=== PATIENT | female | born 1955 | race Caucasian/White ===

== ENCOUNTER 2018-02-15 10:06 | Outpatient (CLI) | payer MEDICARE | END 2018-02-15 10:07 | disposition home or self-care (01) | LOC: BICMAMMO 10:06 | PROVIDERS: ATTEND Internal Medicine | DX: Z12.31 Encounter for screening mammogram for malignant neoplasm of breast (principal) | CPT/HCPCS: 77063; 77067 ==

== ENCOUNTER 2018-11-03 08:56 | Outpatient (CLI) | payer MEDICARE ==
[~2018-11-03 08:56] MED LIST: Iopamidol 370 76% 100 ML VIAL ONE
--- NOTE | 2018-11-03 11:30 | CT ---
CT ABDOMEN PERFORMED WITH IV CONTRAST ENHANCEMENT: Date: 11/03/18 HISTORY: Irritable bowel syndrome with diarrhea, epigastric pain. Pelvic CT was not ordered for this examination. FINDINGS: The lung bases are clear of infiltrates. The liver shows fatty change. The spleen, pancreas, and gallbladder regions appear unremarkable. Right and left adrenal glands, and right and left kidneys are normal in size. The visualized small jimmy wel loops are unremarkable. The terminal ileum is partially visualized and appears normal. There is a moderate amount of stool present within the colon. No significant periaortic or mesenteric adenopath y. There are some small ileocolic nodes which are nonspecific. The appendix is not included on this e xam. IMPRESSION: Fatty change of liver. POS: [facility]
== END 2018-11-03 08:57 | disposition home or self-care (01) ==
LOC: BICCT 08:56
PROVIDERS: ATTEND Physician Assistant Medical
DX: K58.0 Irritable bowel syndrome with diarrhea (principal); K21.9 Gastro-esophageal reflux disease without esophagitis; R10.13 Epigastric pain; K76.0 Fatty (change of) liver, not elsewhere classified
CPT/HCPCS: 74160; 82565; Q9967

== ENCOUNTER 2019-06-14 14:11 | Outpatient (CLI) | payer MEDICARE ==
--- NOTE | 2019-06-14 15:07 | BD ---
BONE DENSITOMETRY USING DEXA: Date: 06/14/19 HISTORY: Postmenopausal screening for osteoporosis. FINDINGS: Lumbar Spine: BMD (g/cm2) L1 0.873 T-Score: -1.1 Z-Score: 0.6 L2 0.948 T-Score: -0.7 Z-Score: 1.1 L3 1.010 T-Score: -0.7 Z-Score: 1.3 L4 0.984 T-Score: -0.7 Z-Score: 1.3 L1-L4 0.958 T-Score: -0.8 Z-Score: 1.0 Femoral Neck: 0.802 T-Score: -0.4 Z-Score: 1.2 Total Femur: 0.959 T-Score: 0.1 Z-Score: 1.4 IMPRESSION: Normal bone mineral density. POS: [facility]
--- NOTE | 2019-06-14 15:38 | MMO ---
Bilateral MAMMO Bilat Screen [facility]. CLINICAL HISTORY: Patient is 64 years old and is seen for screening. The patient has no family history of breast cancer. The patient has no personal history of cancer. VIEWS: The views performed were: bilateral craniocaudal with tomosynthesis and bilateral mediolateral oblique with tomosynthesis. FILMS COMPARED: The present examination has been compared to prior imaging studies performed at [facility] on 09/24/2016 and 02/15/2018, and at [facility] on 08/21/2008. This study has been interpreted with the assistance of computer-aided detection. MAMMOGRAM FINDINGS: There are scattered fibroglandular densities. Finding 1: There are benign appearing calcifications seen in the left breast. Finding 2: There is a stable intramammary lymph node seen in the left breast. There are no suspicious masses, suspicious calcifications, or new areas of architectural distortion. IMPRESSION: THERE IS NO MAMMOGRAPHIC EVIDENCE OF MALIGNANCY. A ROUTINE FOLLOW-UP MAMMOGRAM IN 1 YEAR IS RECOMMENDED. THE RESULTS OF THIS EXAM WERE SENT TO THE PATIENT. ACR BI-RADS Category 2 - Benign finding MAMMOGRAPHY NOTE: 1. A negative mammogram report should not delay a biopsy if a dominant of clinically suspicious mass is present. 2. Approximately 10% to 15% of breast cancers are not detected by mammography. 3. Adenosis and dense breasts may obscure an underlying neoplasm. Reported by: LOYD OLIVAS MD Electonically Signed: [id number]
== END 2019-06-14 14:12 | disposition home or self-care (01) ==
LOC: BICMAMMO 14:11
PROVIDERS: ATTEND Internal Medicine
DX: Z12.31 Encounter for screening mammogram for malignant neoplasm of breast (principal); Z13.820 Encounter for screening for osteoporosis; Z78.0 Asymptomatic menopausal state
CPT/HCPCS: 77063; 77067; 77080

== ENCOUNTER 2023-12-02 07:58 | Outpatient (CLI) | payer MEDICARE, OTHER | END 2023-12-02 07:59 | disposition home or self-care (01) | LOC: BICULT 07:58 | PROVIDERS: ATTEND Internal Medicine | DX: R74.8 Abnormal levels of other serum enzymes (principal); K76.0 Fatty (change of) liver, not elsewhere classified | CPT/HCPCS: 76705 ==

== ENCOUNTER 2024-05-18 10:42 | Outpatient (CLI) | payer OTHER | END 2024-05-18 10:43 | disposition home or self-care (01) | LOC: DTY/OP 10:42 | PROVIDERS: ATTEND Internal Medicine | DX: K76.0 Fatty (change of) liver, not elsewhere classified (principal) | CPT/HCPCS: 97802 ==